=== PATIENT | female | born 1970 | race Caucasian/White ===

== ENCOUNTER 2016-09-16 09:08 | Emergency (ER) | payer OTHER ==
[~2016-09-16] VITALS: Ht 152.4 cm; Wt 50.0 kg
[~2016-09-16 09:08] MED LIST: BACTRIM DS 8001 TAB PO; CIPRO 250MG TA250 MG PO; CIPRO 500MG TA500 MG PO; CLEOCIN HC150 MG/CAP PO; COLACE 100100 MG/CAP PO; DESYREL DIVIDO150 M1 PO; IBU600 MG PO; LEVAQUIN 750MG750 M1 PO; NORCO 325 MG-51 TAB PO; PERCOCET 325 MG1 TA2 PO; PREDNISONE20 MG PO; PYRIDIUM200 M1 PO; TOVIAZ4 MG PO; ZITHROMAX Z PA250 MG PO
[2016-09-16 09:17] VITALS: BP 106/75; TEMP 98.6
[2016-09-16] MEDS ORDERED: ULTRAM 50MG TAB50 MG PO (10:20)
[2016-09-16] MEDS ORDERED: PERCOCET 325 MG1 TA2 PO (10:20)
[2016-09-16 10:44] VITALS: PULSE 84
== END 2016-09-16 10:45 | disposition home or self-care (01) ==
LOC: COL.ER 09:08
DX: R07.9 Chest pain, unspecified (principal); J06.9 Acute upper respiratory infection, unspecified; F17.210 Nicotine dependence, cigarettes, uncomplicated
CPT/HCPCS: J1170

== ENCOUNTER 2016-10-12 03:21 | Emergency (ER) | payer OTHER ==
[~2016-10-12] VITALS: Ht 152.4 cm; Wt 49.1 kg
[~2016-10-12 03:21] MED LIST changes: +ULTRAM 50MG TAB50 MG PO
[2016-10-12 03:34] VITALS: TEMP 96.9
[2016-10-12] MEDS ORDERED: DESYREL 100MG100 MG PO (03:37)
[2016-10-12 03:59] LABS: BASO % 0.5 % (0.0-2.0); EOS # 0.1 (0.0-0.7); EOS % 1.2 % (0-4.0); GRAN # 5.2 (1.4-6.5); GRAN % 59.4 % (42.2-75.2); HEMATOCRIT 43.6 % (37.0-47.0); HEMOGLOBIN 15.4 g/dl (12.5-16.0); LYMPH # 2.6 (1.2-3.4); LYMPH % 29.2 % (20.0-51.0); MEAN CELL VOLUME 81 fl (80.0-100.0); MEAN CORPUSCULAR HEMOGLOBIN 29 pg (27.0-31.0); MEAN CORPUSCULAR HGB CONC 35 g/dl (33.0-37.0); MEAN PLATELET VOLUME 10.7 fl (7.4-10.4); MONO # 0.9 (0.1-0.6); MONO % 9.6 % (1.7-9.3); PLATELET COUNT 306 K/mm3 (130-400); RED BLOOD COUNT 5.38 M/mm3 (4.10-5.30); REDCELL DISTRIBUTION WIDTH-CV 13.2 % (11.5-14.5); WHITE BLOOD COUNT 8.8 K/mm3 (4.8-10.8)
[2016-10-12 04:09] LABS: ADJUSTED CALCIUM 9.5 mg/dL (8.4-10.2); ALANINE AMINOTRANSFERASE 28 U/L (9-52); ALBUMIN 4.9 gm/dL (3.5-5.0); ALKALINE PHOSPHATASE 73 U/L (50-136); ANION GAP 17 mmol/L (7-16); BILIRUBIN,TOTAL 1.1 mg/dL (0.0-1.0); BLOOD UREA NITROGEN 13 mg/dL (7-17); CALCIUM 10.2 mg/dL (8.4-10.2); CARBON DIOXIDE 18 mmol/L (22-30); CHLORIDE 107 mmol/L (98-107); CREATININE, serum 0.61 mg/dL (0.52-1.25); GLUCOSE 97 mg/dL (74-106); LIPASE 65 U/L (23-300); POTASSIUM 3.5 mmol/L (3.4-5.0); SODIUM 142 mmol/L (137-145); TOTAL PROTEIN 8.3 gm/dL (6.4-8.2)
[2016-10-12 04:21] LABS: B-TYPE NATRIURETIC PEPTIDE 43 pg/mL (0-125); TROPONIN-I < 0.012 ng/mL (0.000-0.034)
[2016-10-12] MEDS ORDERED: ULTRAM 50MG TAB50 MG PO (04:56)
[2016-10-12 05:29] VITALS: BP 101/61; PULSE 87
== END 2016-10-12 05:29 | disposition home or self-care (01) ==
LOC: COL.ER 03:21
PROVIDERS: Emergency Medicine
DX: R07.9 Chest pain, unspecified (principal); J06.9 Acute upper respiratory infection, unspecified; B97.89 Other viral agents as the cause of diseases classified elsewhere; M54.89 Other dorsalgia; F17.210 Nicotine dependence, cigarettes, uncomplicated
CPT/HCPCS: J1170; J1885

== ENCOUNTER 2016-12-06 15:05 | Emergency (ER) | payer OTHER ==
[~2016-12-06] VITALS: Ht 152.4 cm; Wt 47.7 kg
[~2016-12-06 15:05] MED LIST changes: +DESYREL 100MG100 MG PO
[2016-12-06 15:08] VITALS: TEMP 98.5
[2016-12-06] MEDS ORDERED: PROAIR HFA0.09 MG/AC IH (15:55)
[2016-12-06 17:30] LABS: BASO # 0.1 (0.0-0.2); BASO % 0.8 % (0.0-2.0); EOS # 0.1 (0.0-0.7); EOS % 1.1 % (0-4.0); GRAN # 4.4 (1.4-6.5); HEMATOCRIT 40.8 % (37.0-47.0); LYMPH # 3.9 (1.2-3.4); LYMPH % 42.8 % (20.0-51.0); MEAN CELL VOLUME 83 fl (80.0-100.0); MEAN CORPUSCULAR HEMOGLOBIN 29 pg (27.0-31.0); MEAN CORPUSCULAR HGB CONC 34 g/dl (33.0-37.0); MEAN PLATELET VOLUME 10.6 fl (7.4-10.4); MONO # 0.7 (0.1-0.6); MONO % 7.1 % (1.7-9.3); PLATELET COUNT 293 K/mm3 (130-400); RED BLOOD COUNT 4.92 M/mm3 (4.10-5.30); REDCELL DISTRIBUTION WIDTH-CV 14.1 % (11.5-14.5); WHITE BLOOD COUNT 9.2 K/mm3 (4.8-10.8)
[2016-12-06 17:38] LABS: ADJUSTED CALCIUM 9.1 mg/dL (8.4-10.2); ALANINE AMINOTRANSFERASE 30 U/L (9-52); ALBUMIN 4.7 gm/dL (3.5-5.0); ALKALINE PHOSPHATASE 80 U/L (50-136); ANION GAP 14 mmol/L (7-16); BILIRUBIN,TOTAL 1.1 mg/dL (0.0-1.0); BLOOD UREA NITROGEN 14 mg/dL (7-17); C-REACTIVE PROTEIN < 0.5 mg/dL (0.0-0.9); CALCIUM 9.7 mg/dL (8.4-10.2); CARBON DIOXIDE 20 mmol/L (22-30); CHLORIDE 107 mmol/L (98-107); CREATININE, serum 0.66 mg/dL (0.52-1.25); GLUCOSE 86 mg/dL (74-106); LIPASE 99 U/L (23-300); POTASSIUM 3.4 mmol/L (3.4-5.0); SODIUM 141 mmol/L (137-145); TOTAL PROTEIN 7.4 gm/dL (6.4-8.2)
[2016-12-06 17:47] LABS: B-TYPE NATRIURETIC PEPTIDE 41 pg/mL (0-125); TROPONIN-I < 0.012 ng/mL (0.000-0.034)
[2016-12-06] MEDS ORDERED: NORCO 325 MG-51 TAB PO (18:02)
[2016-12-06 18:14] VITALS: BP 111/80; PULSE 67
== END 2016-12-06 18:15 | disposition home or self-care (01) ==
LOC: COL.ER 15:05
PROVIDERS: Emergency Medicine
DX: M54.9 Dorsalgia, unspecified (principal); F41.9 Anxiety disorder, unspecified; F32.9 Major depressive disorder, single episode, unspecified